=== PATIENT | female | born 1965 | race Native Hawaiian/Other Pacific Islander ===

== ENCOUNTER 2022-06-14 03:17 | Emergency (ER) | payer OTHER ==
[~2022-06-14] VITALS: Ht 162.6 cm; Wt 91.2 kg
[2022-06-14 04:02] LABS: PLATELET COUNT 235 K/uL (152-353)
[2022-06-14 04:12] LABS: POTASSIUM 3.7 mmol/L (3.6-5.2)
[2022-06-14 05:55] VITALS: BP 122/71; TEMP 98.6
== END 2022-06-14 05:55 | disposition home or self-care (01) ==
LOC: ED 03:17
PROVIDERS: Emergency Medicine
DX: N13.2 Hydronephrosis with renal and ureteral calculous obstruction (principal); E86.0 Dehydration; Z87.442 Personal history of urinary calculi
CPT/HCPCS: 36415; 80048; 81002; 81015; 85027; 96360; 96374; 96375; 96376; 99284; J1170; J1200; J1885; J2175; J2405